=== PATIENT | female | born 1940 | race Caucasian/White ===

== ENCOUNTER 2016-12-18 13:15 | Outpatient (CLI) | payer MEDICARE | END 2016-12-18 13:16 | disposition home or self-care (01) | DX: R07.9 Chest pain, unspecified (principal) ==

== ENCOUNTER 2017-03-07 08:08 | Outpatient (CLI) | payer MEDICARE ==
--- NOTE | 2017-03-08 11:49 | DEXA Report ---
DEXA BONE MINERAL DENSITY SCAN: 03/07/2017 CLINICAL HISTORY: Patient is postmenopausal with osteopenia. TECHNIQUE: Dual energy x-ray absorptiometry (DXA) was performed on a [employer] system. Regions measured are the AP spine, femoral neck, and, if needed, forearm. COMPARISON: None. In accordance with the International Society for Clinical Densitometry (ISCD) guidelines, data from previous exams may be reanalyzed using current recommendations and techniques. This is done to allow a more accurate basis for comparison with the current study. FINDINGS: The data for the lumbar spine is as follows: REGION BMD (g/cm/cm) T-SCORE Z-SCORE L1 0.928 -1.7 -0.8 L2 1.091 -0.9 0.0 L3 1.075 -1.0 -0.2 L4 0.978 -1.8 -1.0 TOTAL 1.020 -1.3 -0.5 NOTE: All evaluable vertebrae are used for classification. The data for the hip is as follows: REGION BMD (g/cm/cm) T-SCORE Z-SCORE Neck 0.711 -2.3 -0.9 TOTAL 0.724 -2.3 -1.0 NOTE: The femoral neck or total proximal femur, whichever is lowest, is used for classification. IMPRESSION: THE WHO CLASSIFICATION BASED ON THE INTERNATIONAL REFERENCE STANDARD IS OSTEOPENIA. THE FRACTURE RISK IS INCREASED. RECOMMENDATION: Patients with diagnosis of osteoporosis or osteopenia should have regular bone mineral density assessment. For those eligible for Medicare, routine testing is allowed once every 2 years. Testing frequency can be increased for patients who have rapidly progressing disease or for those who are receiving medical therapy to restore bone mass. COMMENT: World Health Organization (WHO) definitions for osteoporosis and osteopenia: NORMAL BMD: T-score at -1.0 or higher, fracture risk is low. OSTEOPENIA BMD: T-score between -1.0 and -2.5, fracture risk is increased. OSTEOPOROSIS BMD: T-score at -2.5 or lower, fracture risk high. National Osteoporosis Foundation recommends: 1. Obtain adequate dietary calcium (at least 1200 mg per day) and vitamin D (400 -800 international units per day). 2. Participate, as appropriate, in regular weightbearing and muscle- strengthening exercise. 3. Avoid tobacco use and reduce alcohol and caffeine intake. 4. For more detailed information see the website at www.NOF.org. MTDD
== END 2017-03-07 08:09 | disposition home or self-care (01) ==
LOC: DI 08:08
PROVIDERS: ATTEND Physician Assistant
DX: M85.89 Other specified disorders of bone density and structure, multiple sites (principal); Z78.0 Asymptomatic menopausal state
CPT/HCPCS: 77080

== ENCOUNTER 2017-03-27 09:20 | Outpatient (CLI) | payer MEDICARE ==
--- NOTE | 2017-03-28 13:09 | CT Report ---
EXAM: LEFT FOOT CT WITHOUT CONTRAST EXAM DATE: 03/27/2017 09:59 AM. CLINICAL HISTORY: Previous fusion at the foot. Recent increase of left foot pain. COMPARISON: Left foot radiography from 02/26/2015. TECHNIQUE: Thin-section axial images were acquired of the foot without contrast. Post-processing: Cor onal and sagittal reformats. Other: None. In accordance with CT protocol optimization, one or more of the following dose reduction techniques w ere utilized for this exam: automated exposure control, adjustment of mA and/or KV based on patient s ize, or use of iterative reconstructive technique. FINDINGS: Moderate to severe narrowing at the tibiotalar joint. Sclerosis and subcortical cysts at the tibial p segun and talar dome. Moderate to severe pseudarthrosis between the lateral malleolus and inferolate ral margin of the talus. Bony fusion at the subtalar, calcaneocuboid, talonavicular, calcaneonavicular, and navicular cuneifor m joints. Partial bony fusion between the cuneiform bones and between the lateral cuneiform and cuboi d bones. [id number]-hp-[id number] joint space narrowing at the first tarsometatarsal joint. Severe narrowing at the second, third, fourth, and fifth tarsometatarsal joints. No acute fracture or bone lesions. Small calcaneal enthesophytes. Bones are osteopenic. Musculature: Normal. No fatty atrophy. Other: No tendon entrapment. No soft tissue swelling. IMPRESSION: 1. 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 Moderate to severe pseudarthrosis betwe en the lateral malleolus and the inferolateral margin of the talus. 2. Bony fusion at multiple hindfoot and midfoot joints as described above. 3. Severe osteoarthritis at the second through fifth tarsometatarsal joints. 4. No acute fracture or dislocation. [facility] Referring Provider Line: [phone] SITE ID: [id number]
== END 2017-03-27 09:21 | disposition home or self-care (01) ==
LOC: DI 09:20
PROVIDERS: ATTEND Physician Assistant
DX: M19.072 Primary osteoarthritis, left ankle and foot (principal)

== ENCOUNTER 2021-10-20 16:00 | Outpatient (CLI) | payer MEDICARE ==
[2021-10-20 16:13] LABS: BASOPHILS # (AUTO) 0.1 10^3/uL (0.0-0.1); BASOPHILS % (AUTO) 1.3 %; EOSINOPHILS # (AUTO) 0.1 10^3/uL (0.0-0.7); EOSINOPHILS % (AUTO) 2.8 %; HCT - HEMATOCRIT 40.3 % (37.0-47.0); HGB - HEMOGLOBIN 11.9 g/dL (12.0-16.0); LYMPHOCYTES # (AUTO) 1.3 10^3/uL (1.5-3.5); LYMPHOCYTES % (AUTO) 28.9 %; MEAN CORPUSCULAR HEMOGLOBIN 30.7 pg (27.0-31.0); MEAN CORPUSCULAR HGB CONC 29.5 g/dL (32.0-36.0); MEAN CORPUSCULAR VOLUME 103.9 fL (81.0-99.0); MEAN PLATELET VOLUME 10.7 fL (7.9-10.8); MONOCYTES # (AUTO) 0.4 10^3/uL (0.0-1.0); MONOCYTES % (AUTO) 9.3 %; NEUTROPHILS # (AUTO) 2.7 10^3/uL (1.5-6.6); NEUTROPHILS % (AUTO) 57.7 %; PLT - PLATELET COUNT 257 10^3/uL (130-450); RED BLOOD COUNT 3.88 10^6/uL (4.20-5.40); RED CELL DISTRIBUTION WIDTH 14.8 % (12.0-15.0); WHITE BLOOD COUNT 4.6 x10^3/uL (4.8-10.8)
[2021-10-20 16:28] LABS: ALBUMIN 3.9 g/dL (3.2-5.5); ALBUMIN/GLOBULIN RATIO 1.2 (1.0-2.2); ALKALINE PHOSPHATASE 61 IU/L (42-121); ALT ALANINE AMINOTRANSFERASE 12 IU/L (10-60); AST ASPARTATE AMINOTRANSFERASE 15 IU/L (10-42); BILIRUBIN,TOTAL 0.6 mg/dL (0.2-1.0); BUN - BLOOD UREA NITROGEN 21 mg/dL (6-20); CARBON DIOXIDE - CO2 27 mmol/L (21-32); CHLORIDE 101 mmol/L (101-111); CHOLESTEROL 230 mg/dL; GFR - MDRD 53 (>89); GLUCOSE 103 mg/dL (70-100); HDL CHOLESTEROL 77 mg/dL; LDL CHOLESTEROL,CALCULATED 140 mg/dL; LDL/HDL RATIO 1.8 (<4.4); POTASSIUM 4.7 mmol/L (3.5-5.0); SODIUM 137 mmol/L (135-145); TOTAL PROTEIN 7.2 g/dL (6.7-8.2); TRIGLYCERIDES 67 mg/dL; VLDL CHOLESTEROL 13 mg/dL
== END 2021-10-20 16:01 | disposition home or self-care (01) ==
LOC: LAB.R 16:00
PROVIDERS: ATTEND Internal Medicine
DX: Z00.00 Encounter for general adult medical examination without abnormal findings (principal); D64.9 Anemia, unspecified; C50.919 Malignant neoplasm of unspecified site of unspecified female breast; I10 Essential (primary) hypertension; I89.0 Lymphedema, not elsewhere classified; M19.90 Unspecified osteoarthritis, unspecified site; Z13.6 Encounter for screening for cardiovascular disorders; Z79.899 Other long term (current) drug therapy; D75.89 Other specified diseases of blood and blood-forming organs
CPT/HCPCS: 80053; 80061; 82306; 82607; 82746; 83721; 84443; 85025

== ENCOUNTER 2022-02-03 14:10 | Outpatient (CLI) | payer MEDICARE | END 2022-02-03 14:11 | disposition EMS.NT | LOC: EMS 14:10 | DX: Z03.89 Encounter for observation for other suspected diseases and conditions ruled out (principal) ==

== ENCOUNTER 2022-02-04 10:21 | Emergency (ER) | payer MEDICARE ==
--- NOTE | 2022-02-04 11:44 | XRAY Report ---
PROCEDURE: Lumbar Spine 2 View INDICATIONS: fall T/L back pain TECHNIQUE: 3 views of the lumbar spine were acquired. COMPARISON: None. FINDINGS: Bones: 5 [id number] vertebrae are present. There is normal bony alignment. No vertebral body compression fractures. No suspicious bony lesions. Generalized decreased osseous mineralization pres ent. Degenerative facet arthropathy noted in the lower lumbar spine Soft tissues: Overlying bowel gas pattern is normal. No suspicious soft tissue calcifications. Ath erosclerotic calcification of the abdominal aorta without evidence of aneurysm. IMPRESSION: Osteopenia and degenerative changes without fracture or malalignment Reviewed by: Carlos Ledbetter MD on 02/04/2022 10:43 AM DAX Approved by: Carlos Ledbetter MD on 02/04/2022 10:43 AM DAX Station ID: [id number]
--- NOTE | 2022-02-04 11:46 | XRAY Report ---
PROCEDURE: Thoracic Spine 2 View INDICATIONS: fall T/L back pain TECHNIQUE: 2 views of the thoracic spine were acquired. COMPARISON: None. FINDINGS: Bones: No fractures or dislocations. No suspicious bony lesions. 12 pairs of ribs are noted, and a ppear intact where visualized. Generalized decreased osseous mineralization present. Soft tissues: No paravertebral stripe thickening. Axillary surgical clips noted IMPRESSION: Osteopenia without evidence of fracture Reviewed by: Carlos Ledbetter MD on 02/04/2022 10:45 AM DAX Approved by: Carlos Ledbetter MD on 02/04/2022 10:45 AM DAX Station ID: [id number]
--- NOTE | 2022-02-04 11:55 | ED Physician Documentation ---
PD HPI Fall - Stated complaint Stated Complaint: GLF-LOW BACK PX - Chief complaint Chief Complaint: Back Pain - History obtained from History obtained from: Patient, Family - History of Present Illness Mechanism of injury: Lost balance Fall distance: Standing position Where injury occurred: Home Timing - onset: Yesterday Injury(ies) location: Back Quality of pain: Pain Associated symptoms: No: LOC, AMS, Amnesia, Seizures, Ear drainage, Nasal drainage, Neck pain, Weakness, Paresthesias, Dyspnea, Nausea / vomiting, Hematemesis, Abdominal distension Symptoms improve with: Rest Worsens with: Movement, Palpation Contributing factors: No: Anticoagulated, Intoxicated Similar symptoms before: Has not had sx before Recently seen: Not recently seen - Additional information Additional information: 81-year-old Karen Marie has had HER2 positive breast cancer and she is 7 years postdiagnosis has been released from oncology care. She had a fall yesterday in her home outside of her garage when she had things in her arms and missed a step. She fell backwards landing on her head and back. She did not have loss of consciousness she denies a headache today she denies nausea vomiting difficulty concentrating dizziness or lightheadedness. She does have pain in the mid back especially with any movement. If she is still she has no back pain. She denies any injury to her ankle which is continuously in a splint after a remote injury. Review of Systems Constitutional: denies: Fever Eyes: denies: Decreased vision Ears: denies: Ear pain Nose: denies: Congestion Throat: denies: Sore throat Cardiac: denies: Chest pain / pressure, Palpitations, Pedal edema, Calf pain Respiratory: denies: Dyspnea, Cough GI: denies: Abdominal Pain, Nausea, Vomiting : denies: Dysuria, Frequency Skin: denies: Rash, Lesions Musculoskeletal: reports: Back pain. denies: Neck pain, Extremity pain Neurologic: reports: Head injury. 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 : Incontinence HEENT: Other Psych: None Musculoskeletal: Osteoarthritis Derm: None - Past Surgical History Past Surgical History: Yes General: Colonoscopy /ACOUSTICAL LOGGING ENGINEER: Mastectomy HEENT: Tonsil/Adenoidectomy - Present Medications Home Medications: Ambulatory Orders Medication Instructions Recorded Confirmed Multivitamin [Multi-Vitamin Daily] 1 each PO DAILY 02/16/13 08/27/18 lisinopriL [Zestril] 10 mg PO QPM 02/16/13 08/27/18 Acetaminophen 325 mg PO DAILY PM 07/25/16 08/27/18 Cyclobenzaprine [Flexeril] 10 mg PO TID PRN #20 tablet 02/04/22 HYDROcod/ACETAM 5/325 [[place] 5/325] 1 - 2 tablet PO Q6H PRN #14 tablet 02/04/22 - Allergies Allergies/Adverse Reactions: Allergies Allergy/AdvReac Type Severity Reaction Status Date / Time iodine Allergy Severe Rash Verified 02/04/22 10:34 penicillin V [Penicillin V] Allergy Severe Rash Verified 02/04/22 10:34 - Social History Does the pt smoke?: No Smoking Status: Never smoker PD ED PE NORMAL - Vitals Vital signs reviewed: Yes (Hypertensive mild) - General General: Alert and oriented X 3, No acute distress, Well developed/nourished - HEENT HEENT: PERRL, EOMI, Other (There is some mild tenderness to the left occipital parietal area without significant hematoma there is no step-off or crepitance) - Neck Neck: Supple, no meningeal sign, No bony TTP - Cardiac Cardiac: RRR, No murmur - Respiratory Respiratory: No respiratory distress, Clear bilaterally - Abdomen Abdomen: Soft, Non tender - Back Back: No CVA TTP, No spinal TTP, Other (There is point tenderness to the thoracolumbar junction across the back. There is no crepitance or specific injury noted) - Derm Derm: Normal color, Warm and dry, No rash - Extremities Extremities: No deformity, No edema - Neuro Neuro: Alert and oriented X 3, print inspector 2-12 intact, No motor deficit, No sensory deficit, Normal speech Eye Opening: Spontaneous Motor: Obeys Commands Verbal: Oriented GCS Score: 15 - Psych Psych: Normal mood, Normal affect Results - Vitals Vitals: Vital Signs - 24 hr 02/04/22 02/04/22 10:34 12:24 Temperature 37.1 C Heart Rate 76 70 Respiratory 16 16 Rate Blood Pressure 165/81 H 158/79 H O2 Saturation 98 98 Oxygen O2 Source Room air - Rads (name of study) thoracic spine' Radiology: Prelim report reviewed (Impression: Osteopenia without evidence of fracture.), EMP read indepedently, See rad report Lumbar spine Radiology: Prelim report reviewed (Impression: Osteopenia and degenerative changes without fracture or malalignment.), EMP read indepedently, See rad report PD MEDICAL DECISION MAKING - ED course Complexity details: reviewed results, re-evaluated patient, considered differential, d/w patient ED course: 81-year-old Karen Marie presents to the emergency department with her daughter after falling yesterday in her garage and injuring her back. She has pain with movement consistent with the possibility of a vertebral compression fracture. Plain films of the lumbar and thoracic spine are without evidence of acute fract ure. She is prescribed pain medication and given instructions regarding continued movement and expectations for recovery. She does have a primary care doctor for follow-up. Departure - Departure Disposition: 01 Home, Self Care Clinical Impression: Thoracolumbar back pain Instructions: ED Sprain Thoracic Spine Follow-Up: Kimberley Castro MD [Primary Care Provider] - Prescriptions: Cyclobenzaprine [Flexeril] 10 mg PO TID PRN #20 tablet PRN Reason: Spasms HYDROcod/ACETAM 5/325 [[place] 5/325] 1 - 2 tablet PO Q6H PRN #14 tablet PRN Reason: Pain Comments: Karen, today we did not find evidence of a fracture on your plain films. It is likely you will have some pain in this portion of your back for a week to 10 days maybe 2 weeks and the recommendation is to use ice and stretch to your back and to use range of motion daily. I have E scribed some pain medication a muscle relaxant to the [employer] [facility] in [place]. Make certain that you take your pain medications and get up and move around several times during the day. Pain medication can be constipating and the recommendation is to use a stimulant type laxative like milk of magnesia. If you do not have improvement in your pain over the next 2 weeks follow-up with Dr. Castro for further evaluation. Discharge Date/Time: 02/04/22 12:32
[2022-02-04 12:32] VITALS: BP 158/79
== END 2022-02-04 12:32 | disposition home or self-care (01) ==
LOC: ED 10:21
DX: S09.90XA Unspecified injury of head, initial encounter (principal); S29.8XXA Other specified injuries of thorax, initial encounter; W10.9XXA Fall (on) (from) unspecified stairs and steps, initial encounter; Y92.008 Other place in unspecified non-institutional (private) residence as the place of occurrence of the external cause; I10 Essential (primary) hypertension
CPT/HCPCS: 99284

== ENCOUNTER 2022-02-04 21:37 | Outpatient (CLI) | payer MEDICARE | END 2022-02-04 21:38 | disposition critical access hospital (66) | LOC: EMS 21:37 | DX: R53.1 Weakness (principal); M54.50 Low back pain, unspecified; R60.0 Localized edema; R26.2 Difficulty in walking, not elsewhere classified; W01.0XXA Fall on same level from slipping, tripping and stumbling without subsequent striking against object, initial encounter; Y92.002 Bathroom of unspecified non-institutional (private) residence as the place of occurrence of the external cause | CPT/HCPCS: A0425; A0429 ==

== ENCOUNTER 2022-02-04 21:54 | Emergency (ER) | payer MEDICARE ==
--- NOTE | 2022-02-04 22:10 | ED Physician Documentation ---
PD HPI Fall - Stated complaint Stated Complaint: GLF - Chief complaint Chief Complaint: Ext Problem - History obtained from History obtained from: Patient - History of Present Illness Mechanism of injury: Lost balance (she had fallen couple days ago due to ankle giving out (uses brace on it due to weakness of ankle normally). Had pain in ankle with twisting and in back from falling. Seen in ER for these. States ankle gave out again and fell again at home, despite using her walker. Lumbar area pain worsened.) Fall distance: Standing position Where injury occurred: Home Timing - onset: How many days ago (fell 3 times in the past 2 days due to ankle giving out.) Injury(ies) location: Back, Left Lower Extremity Associated symptoms: No: LOC, AMS, Weakness, Paresthesias Contributing factors: No: Anticoagulated Similar symptoms before: Has not had sx before Recently seen: Emergency Dept Review of Systems Constitutional: denies: Fever, Chills Nose: denies: Rhinorrhea / runny nose, Congestion Throat: denies: Sore throat Cardiac: denies: Chest pain / pressure Respiratory: denies: Cough GI: denies: Abdominal Pain Skin: denies: Abrasion (s), Laceration (s) Musculoskeletal: reports: Back pain (due to recent fall), Joint pain, Joint swelling Neurologic: denies: Focal weakness, Numbness PD PAST MEDICAL HISTORY - Past Medical History Cardiovascular: Hypertension, High cholesterol Respiratory: None Endocrine/Autoimmune: None GI: GERD 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 : Incontinence HEENT: Other Psych: None Musculoskeletal: Osteoarthritis Derm: None - Past Surgical History Past Surgical History: Yes General: Colonoscopy /GYROSCOPIC INSTRUMENT MECHANIC: Mastectomy HEENT: Tonsil/Adenoidectomy - Present Medications Home Medications: Ambulatory Orders Medication Instructions Recorded Confirmed Multivitamin [Multi-Vitamin Daily] 1 each PO DAILY 02/16/13 08/27/18 lisinopriL [Zestril] 10 mg PO QPM 02/16/13 08/27/18 Acetaminophen 325 mg PO DAILY PM 07/25/16 08/27/18 Cyclobenzaprine [Flexeril] 10 mg PO TID PRN #20 tablet 02/04/22 HYDROcod/ACETAM 5/325 [[place] 5/325] 1 - 2 tablet PO Q6H PRN #14 tablet 02/04/22 - Allergies Allergies/Adverse Reactions: Allergies Allergy/AdvReac Type Severity Reaction Status Date / Time iodine Allergy Severe Rash Verified 02/04/22 22:01 penicillin V [Penicillin V] Allergy Severe Rash Verified 02/04/22 22:01 - Social History Does the pt smoke?: No Smoking Status: Never smoker PD ED PE NORMAL - Vitals Vital signs reviewed: Yes - General General: Alert and oriented X 3, Well developed/nourished - HEENT HEENT: Atraumatic - Neck Neck: Supple, no meningeal sign, No bony TTP, No adenopathy - Cardiac Cardiac: RRR, No murmur - Respiratory Respiratory: Clear bilaterally - Abdomen Abdomen: Soft, Non tender - Back Back: No CVA TTP, Other (tender in lower back/lumbar area central and right of center in muscles. NO bruising/redness.) - Derm Derm: Normal color, Warm and dry - Extremities Extremities: Other (left ankle with swelling and tenderness. No gross deformity. Palpation of malleolus suggests arthritic changes. ) - Neuro Neuro: No motor deficit, No sensory deficit Results - Vitals Vitals: Oxygen O2 Source Room air - Rads (name of study) left ankle Radiology: Prelim report reviewed (arthritic/ no fractures), See rad report lumbar CT Radiology: Prelim report reviewed (arthritic changes/ no fractures), See rad report PD MEDICAL DECISION MAKING - ED course Complexity details: re-evaluated patient (can try boot orthosis and see if better support for ankle. Has ROM but hurts for ankle. 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 ), considered differential, d/w patient Departure - Departure Disposition: 01 Home, Self Care Clinical Impression: Thoracolumbar back pain Fall from slip, trip, or stumble Qualifiers: Encounter type: initial encounter Qualified Code(s): W01.0XXA - Fall on same level from slipping, tripping and stumbling without subsequent striking against object, initial encounter Ankle sprain Qualifiers: Encounter type: initial encounter Involved ligament of ankle: unspecified ligament Laterality: left Qualified Code(s): S93.402A - Sprain of unspecified ligament of left ankle, initial encounter Condition: Stable Record reviewed to determine appropriate education?: Yes Instructions: ED Boot Aircast Walker Follow-Up: Kimberley Castro MD [Primary Care Provider] - Comments: mixing 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 Use Tylenol 4 times daily for the next several days to week to help with pain. Add the prior prescription pain medicine if needed. Your ankle x-ray does not show any fractures. However obviously a sprain and could be flaring up some arthritis. Use the boot orthosis when up and around for the next week or 2 and see if that helps support it well enough to heal. Activity as tolerated. Continue your other usual medicines. The CT scan of your back does not show any occult fractures but does show the arthritis. Incidental note is made of some kidney cysts that are typically benign. Discharge Date/Time: 02/05/22 02:42
[2022-02-04] MEDS ORDERED: KETOROLAC 30 MG/ML VIAL IM STA (22:48)
[2022-02-04] MEDS ORDERED: oxyCODONE 5 MG TABLET PO STA (22:48)
--- NOTE | 2022-02-05 01:17 | XRAY Report ---
PROCEDURE: Ankle 3 View BILAT INDICATIONS: fall with ankles injury/twisting; pain weight bear TECHNIQUE: 6 views of the ankles were acquired. COMPARISON: None. FINDINGS: Bones: No fractures or dislocations but there is moderate osteoarthritis at each ankle joint. Ankle mortise is normally aligned. No suspicious bony lesions. Soft tissues: No tibiotalar joint effusion. Achilles tendon appears normal. Soft tissue swelling i s seen at the lateral malleolus area bilaterally. IMPRESSION: Soft tissue swelling without fracture or evidence of traumatic subluxation. Moderate ost eoarthritis at the ankle joint. Reviewed by: Jose Nagel MD on 02/05/2022 1:15 AM PDT Approved by: Jose Nagel MD on 02/05/2022 1:15 AM PDT Station ID: [id number]
--- NOTE | 2022-02-05 02:03 | CT Report ---
PROCEDURE: Abdomen/Pelvis WO INDICATIONS: fall yest with left lumbar pain; neg Xray earlier TECHNIQUE: Noncontrast 5 mm thick sections acquired from the diaphragms to the symphysis. 5 mm coronal and sagi ttal reformats were then performed. For radiation dose reduction, the following was used: automated exposure control, adjustment of mA and/or kV according to patient size. COMPARISON: 03/31/2013 similar study. FINDINGS: Image quality: Limited by the absence of both oral and intravenous contrast.. ABDOMEN: Lung bases: Lung bases are clear. Heart size is normal. There is a large hiatal hernia behind the heart. Solid organs: Liver and spleen are normal in size. Gallbladder contains at least one moderately lar ge calculus and additional noncalcified gallstones likely are also present within the gallbladder lum en. Pancreas is normal in contours. No adrenal nodules. Kidneys are normal in size, without hydron ephrosis or nephrolithiasis but there are multiple presumed cysts ranging in size from 1 cm to 4 cm, present bilaterally, which are incompletely characterized by noncontrast CT scanning.. Peritoneum and bowel: Unenhanced bowel loops demonstrate normal wall thickness and caliber. No free fluid or air. Nodes and vessels: No retroperitoneal or mesenteric adenopathy by size criteria. Aorta and inferior vena cava are normal in caliber. Miscellaneous: No ventral hernias. PELVIS: Genitourinary: Bladder wall thickness is normal. Miscellaneous: No inguinal hernias or adenopathy. Bones: No suspicious bony lesions. No vertebral body compression fractures. IMPRESSION: 1. Large hiatal hernia behind the heart. 2. Multiple renal cortical cysts are present at the kidneys bilaterally, which are incompletely farhana cterized by noncontrast CT scanning. If clinically desired follow-up by renal ultrasound or contrast- enhanced CT/MR scanning could be utilized for further evaluation. 3. No trauma found. Specifically the low thoracic and lumbosacral spine show degenerative changes but no compression fracture is associated. Reviewed by: Jose Nagel MD on 02/05/2022 2:02 AM PDT Approved by: Jose Nagel MD on 02/05/2022 2:02 AM PDT Station ID: [id number]
[2022-02-05 02:05] VITALS: BP 152/65
== END 2022-02-05 02:42 | disposition home or self-care (01) ==
LOC: EDUNIT# → ED 21:54
DX: S93.402A Sprain of unspecified ligament of left ankle, initial encounter (principal); W01.0XXA Fall on same level from slipping, tripping and stumbling without subsequent striking against object, initial encounter; S09.90XA Unspecified injury of head, initial encounter; S29.8XXA Other specified injuries of thorax, initial encounter; W10.9XXA Fall (on) (from) unspecified stairs and steps, initial encounter; Y92.008 Other place in unspecified non-institutional (private) residence as the place of occurrence of the external cause; I10 Essential (primary) hypertension
CPT/HCPCS: 72070; 72100; 73610; 74176; 96372; 99284; A9270

== ENCOUNTER 2023-04-16 10:01 | Outpatient (CLI) | payer MEDICARE | END 2023-04-16 10:02 | disposition EMS.NT | LOC: EMS 10:01 | DX: Z03.89 Encounter for observation for other suspected diseases and conditions ruled out (principal) ==

== ENCOUNTER 2023-05-18 07:58 | Outpatient (CLI) | payer MEDICARE ==
--- NOTE | 2023-05-18 10:21 | CT Report ---
PROCEDURE: HEAD WO INDICATIONS: UNSPECIFIED VISUAL DISTURBANCE TECHNIQUE: Noncontrast 4.5 mm thick angled axial sections acquired from the foramen magnum to the vertex. For r adiation dose reduction, the following was used: automated exposure control, adjustment of mA and/or kV according to patient size. COMPARISON: None. FINDINGS: Image quality: Excellent. CSF spaces: Basal cisterns are patent. No extra-axial fluid collections. Ventricles are normal in size and shape. Brain: No midline shift. No intracranial masses or hemorrhage. Avila-white matter interface is norm al. Skull and face: Calvarium and visualized facial bones are intact, without suspicious lesions. An ap parent osteoma can be seen posteriorly and on the left, as on series 3 image 46. Hyperostosis frontal is is incidentally noted, which is not frankly abnormal for a female patient of this age. Sinuses: Visualized sinuses and mastoids are clear. IMPRESSION: No intracranial hemorrhage is seen. No significant intracranial abnormality is seen. 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 Reviewed by: Ronni Mohan MD on 05/18/2023 9:19 AM DAX Approved by: Ronni Mohan MD on 05/18/2023 9:19 AM DAX Station ID: [id number]
== END 2023-05-18 07:59 | disposition home or self-care (01) ==
LOC: DI 07:58
PROVIDERS: ATTEND Internal Medicine
DX: H53.9 Unspecified visual disturbance (principal)

== ENCOUNTER 2023-12-26 10:40 | Outpatient (CLI) | payer MEDICARE ==
[2023-12-26 11:00] LABS: BASOPHILS % (AUTO) 0.5 %; EOSINOPHILS # (AUTO) 0.1 10^3/uL (0.0-0.7); EOSINOPHILS % (AUTO) 1.6 %; HCT - HEMATOCRIT 38.2 % (37.0-47.0); HGB - HEMOGLOBIN 12.1 g/dL (12.0-16.0); LYMPHOCYTES # (AUTO) 1.8 10^3/uL (1.5-3.5); LYMPHOCYTES % (AUTO) 29.2 %; MEAN CORPUSCULAR HEMOGLOBIN 30.3 pg (27.0-31.0); MEAN CORPUSCULAR HGB CONC 31.7 g/dL (32.0-36.0); MEAN CORPUSCULAR VOLUME 95.5 fL (81.0-99.0); MEAN PLATELET VOLUME 8.8 fL (7.9-10.8); MONOCYTES # (AUTO) 0.5 10^3/uL (0.0-1.0); MONOCYTES % (AUTO) 7.2 %; NEUTROPHILS # (AUTO) 3.8 10^3/uL (1.5-6.6); NEUTROPHILS % (AUTO) 61.3 %; PLT - PLATELET COUNT 290 10^3/uL (130-450); RED CELL DISTRIBUTION WIDTH 13.7 % (12.0-15.0); WHITE BLOOD COUNT 6.2 x10^3/uL (4.8-10.8)
[2023-12-26 11:18] LABS: % IRON SATURATION 17 % (20-50); ALBUMIN 4.1 g/dL (3.2-5.5); ALBUMIN/GLOBULIN RATIO 1.3 (1.0-2.2); ALKALINE PHOSPHATASE 65 IU/L (42-121); ALT ALANINE AMINOTRANSFERASE 8 IU/L (10-60); AST ASPARTATE AMINOTRANSFERASE 13 IU/L (10-42); BILIRUBIN,TOTAL 0.5 mg/dL (0.2-1.0); BUN - BLOOD UREA NITROGEN 24 mg/dL (6-20); CALCIUM 9.7 mg/dL (8.5-10.3); CARBON DIOXIDE - CO2 27 mmol/L (21-32); CHLORIDE 105 mmol/L (101-111); CHOLESTEROL 223 mg/dL; GFR - MDRD 53 (>89); GLUCOSE 104 mg/dL (74-104); HDL CHOLESTEROL 75 mg/dL; IRON 65 ug/dL (50-212); LDL CHOLESTEROL,CALCULATED 129 mg/dL; LDL/HDL RATIO 1.7 (<4.4); POTASSIUM 4.1 mmol/L (3.5-4.5); SODIUM 139 mmol/L (135-145); TOTAL IRON BINDING CAPACITY 374 ug/dL (250-450); TOTAL PROTEIN 7.3 g/dL (6.4-8.9); TRANSFERRIN 267 mg/dL (203-362); TRIGLYCERIDES 97 mg/dL (48-352); VLDL CHOLESTEROL 19 mg/dL
[2023-12-26 11:30] LABS: THYROID STIMULATING HORMONE 1.74 uIU/mL (0.34-5.60)
[2023-12-26 11:37] LABS: FERRITIN 37.6 ng/mL (11.0-306.8)
[2023-12-26 11:46] LABS: ESTIMATED AVERAGE GLUCOSE 123 mg/dL (70-100); HEMOGLOBIN A1c% 5.9 % (4.27-6.07)
== END 2023-12-26 10:41 | disposition home or self-care (01) ==
LOC: LAB 10:40
PROVIDERS: ATTEND Internal Medicine
DX: I10 Essential (primary) hypertension (principal); D64.9 Anemia, unspecified; R73.01 Impaired fasting glucose; C50.919 Malignant neoplasm of unspecified site of unspecified female breast; Z79.899 Other long term (current) drug therapy
CPT/HCPCS: 36415; 80053; 80061; 82607; 82728; 82746; 83036; 83540; 83721; 84443; 84466; 85025